=== PATIENT | female | born 1965 | race Caucasian/White ===

== ENCOUNTER 2019-02-15 13:57 | Emergency (ER) | payer SELFPAY ==
[~2019-02-15] VITALS: Ht 162.6 cm; Wt 115.9 kg
[2019-02-15] MEDS ORDERED: ACET325C PO (14:19)
[2019-02-15] MEDS ORDERED: GLIM1TAB PO (14:19)
[2019-02-15] MEDS ORDERED: TUMS500C PO (14:19)
[2019-02-15] MEDS ORDERED: LISI10TA4 PO (14:19)
[2019-02-15 14:42] LABS: BASO % 0.6 % (0.0-1.0); EOS # 0.1 10^3/uL (0.0-0.50); EOS % 0.9 % (0.0-3.0); HEMATOCRIT 47.5 % (36.0-47.0); HEMOGLOBIN 15.6 g/dl (12.0-15.5); LYMPH # 1.1 10^3/uL (1.5-4.5); LYMPH % 16.7 % (24.0-44.0); MEAN CORPUSCULAR HEMOGLOBIN 29.4 pg (27.0-33.0); MEAN CORPUSCULAR HGB CONC 32.8 g/dl (32.0-36.5); MEAN CORPUSCULAR VOLUME 89.5 fl (80.0-96.0); MONO # 0.5 10^3/uL (0.0-0.8); MONO % 6.8 % (0.0-5.0); NEUTROPHILS % 74.7 % (36.0-66.0); PLATELET COUNT, AUTOMATED 173 10^3/uL (150-450); RED BLOOD COUNT 5.31 10^6/uL (4.00-5.40); WHITE BLOOD COUNT 6.6 10^3/uL (4.0-10.0)
--- NOTE | 2019-02-15 15:01 | REP ---
CHEST, SINGLE VIEW: Single view of the chest is performed. There is no prior study for comparison. There is mild cardiomegaly. There is no acute infiltrate. The mediastinal silhouette is unremarkable. Electronically Signed by Sung Ham MD 02/18/2019 01:05 P
[2019-02-15 15:10] LABS: BLOOD UREA NITROGEN 14 MG/DL (7-18); CALCIUM LEVEL 9.3 MG/DL (8.5-10.1); CARBON DIOXIDE LEVEL 26 MEQ/L (21-32); CHLORIDE LEVEL 109 MEQ/L (98-107); CK-MB VALUE MASS < 1.0 NG/ML (<3.6); CPK CREATINE PHOSPHOKINASE 51 U/L (26-192); CREATININE FOR GFR 0.62 MG/DL (0.55-1.30); GLOMERULAR FILTRATION RATE > 60.0 (>51); GLUCOSE, FASTING 88 MG/DL (70-100); MB/CK RELATIVE INDEX 1.96 (< OR =4); POTASSIUM SERUM 3.9 MEQ/L (3.5-5.1); SODIUM LEVEL 141 MEQ/L (136-145); TROPONIN I < 0.02 NG/ML (< 0.10)
[2019-02-15 15:22] LABS: INR 0.99; PROTHROMBIN TIME 12.8 SECONDS (11.8-14.0)
[2019-02-15 15:31] LABS: ALBUMIN 3.9 GM/DL (3.2-5.2); ALT/SGPT 31 U/L (12-78); BILIRUBIN,DIRECT 0.1 MG/DL (0.0-0.2); BILIRUBIN,TOTAL 0.5 MG/DL (0.2-1.0); THYROID STIMULATING HORMONE 0.259 uIU/ML (0.358-3.740); TOTAL PROTEIN 7.6 GM/DL (6.4-8.2)
[2019-02-15] MEDS ORDERED: ISOVUE-370 76% 100ML VIAL (Q9967) As Ordered ONE (17:08)
--- NOTE | 2019-02-15 17:47 | REPVR ---
EXAM: CT Angiography Chest With Contrast EXAM DATE/TIME: 02/15/2019 5:04 PM CLINICAL HISTORY: 53 years old, female; Chest pain TECHNIQUE: Imaging protocol: Axial computed tomographic angiography images of the chest with intravenous contrast using CT angiography protocol. Coronal and sagittal reformatted images were created and reviewed. 3D rendering: MIP reconstructed images were created and reviewed. Radiation optimization: All CT scans at this facility use at least one of these dose optimization techniques: automated exposure control; mA and/or kV adjustment per patient size (includes targeted exams where dose is matched to clinical indication); or iterative reconstruction. Contrast material: ISOVUE 370; Contrast volume: 75 ml; Contrast route: IV; COMPARISON: CR PORTABLE CHEST X-RAY 02/15/2019 2:23 PM FINDINGS: Pulmonary arteries: There are no pulmonary emboli. Aorta: There is no aortic dissection or aneurysm. Lungs: Unremarkable. No consolidation. No masses. Pleural space: Unremarkable. No pneumothorax. No pleural effusion. Heart: Unremarkable. No cardiomegaly. No pericardial effusion. Lymph nodes: Unremarkable. No enlarged lymph nodes. Bones/joints: The spine demonstrates mild degenerative changes. Soft tissues: Unremarkable. IMPRESSION: 1. There is no aortic dissection or aneurysm. 2. There are no pulmonary emboli. Electronically signed by: Jae Knight On 02/15/2019 17:46:45 PM
[2019-02-15 19:23] LABS: CK-MB VALUE MASS < 1.0 NG/ML (<3.6); CPK CREATINE PHOSPHOKINASE 43 U/L (26-192); MB/CK RELATIVE INDEX 2.33 (< OR =4); TROPONIN I < 0.02 NG/ML (< 0.10)
[2019-02-15] MEDS ORDERED: ASPI81CH33 PO (19:55)
[2019-02-15] MEDS ORDERED: PRIL20TA2 PO (19:55)
[2019-02-15] MEDS ORDERED: KETOROLAC 30 MG/ML VIAL (J1885) IV ONE (20:00)
[2019-02-15 20:08] VITALS: BP 133/87
--- NOTE | 2019-02-15 20:43 | ECGEPIP ---
[facility] - ED Test Date: 2019-02-15 Pat Name: JOHNNY BEACH Department: Room: - Gender: Female Special Educator: : 1965 Requested By: Tania Colón Order Number: [id number] Reading MD: Tania Colón Measurements Intervals [place] Rate: 75 P: 33 [place]: 160 QRS: QRSD: 93 T: 58 QT: 383 QTc: 428 Interpretive Statements SINUS RHYTHM BORDERLINE LEFT AXIS DEVIATION LOW QRS VOLTAGE IN PRECORDIAL LEADS PATTERN CONSISTENT WITH PULMONARY DISEASE NONSPECIFIC ST T WAVE CHANGES POOR R WAVE PROGRESSION NO PRIOR ECG FOR COMPARISON Electronically Signed on 02-15-2019 20:43:12 EDT by Tania Colón
--- NOTE | 2019-02-15 20:53 | ECGEPIP ---
[facility] - ED Test Date: 2019-02-15 Pat Name: JOHNNY BEACH Department: Room: - Gender: Female Hospital Coder: ambar : 1965 Requested By: COLLINS Trivedi Order Number: [id number] Reading MD: Tania Colón Measurements Intervals [place] Rate: 64 P: 35 [place]: 172 QRS: QRSD: 105 T: 40 QT: 431 QTc: 447 Interpretive Statements SINUS RHYTHM BORDERLINE LEFT AXIS DEVIATION LOW QRS VOLTAGE IN PRECORDIAL LEADS PATTERN CONSISTENT WITH PULMONARY DISEASE BASELINE ARTIFACT MAY AFFECT READING POOR R WAVE PROGRESSION NONSPECIFIC ST T WAVE CHANGES CW 02/15/[address] T WAVE CHANGES Electronically Signed on 02-15-2019 20:52:48 EDT by Tania Colón
== END 2019-02-15 20:08 | disposition home or self-care (01) ==
LOC: M ED 13:57
DX: K21.9 Gastro-esophageal reflux disease without esophagitis (principal); E11.9 Type 2 diabetes mellitus without complications; I10 Essential (primary) hypertension
CPT/HCPCS: 71045; 71275; 80048; 80076; 82550; 82553; 84443; 84484; 85025; 85610; 85730; 93005; 93041; 94760; 96374; 99285; J1885; Q9967